=== PATIENT | female | born 1935 | race Caucasian/White ===

== ENCOUNTER → 2023-12-15 07:51 | Outpatient (REF) | payer MEDICARE, OTHER, SELFPAY | LOC: CLAB 07:51 | PROVIDERS: ATTENDING PHYSICIAN Specialist | DX: N39.0 Urinary tract infection, site not specified (principal) | CPT/HCPCS: 87077; 87086; 87186 ==

== ENCOUNTER → 2024-02-04 07:21 | Outpatient (REF) | payer MEDICARE, OTHER, SELFPAY ==
[2024-02-04 10:48] LABS: Blood Urea Nitrogen 18 mg/dl (7-17)
== END ==
LOC: PAVMRI 07:21
PROVIDERS: ATTENDING PHYSICIAN Otolaryngology; FAMILY PHYSICIAN Family Medicine
DX: R42 Dizziness and giddiness (principal)
CPT/HCPCS: 36415; 70553; 82565; 84520; A9575

== ENCOUNTER → 2024-03-29 06:39 | Outpatient (REF) | payer MEDICARE, OTHER, SELFPAY ==
[2024-03-29 07:22] LABS: % Basophils 0.5 % (0-2); % Eosinophils 2.5 % (0-6); % Immature Granulocytes 0.2 % (0-0.5); % Lymphocytes 26.7 % (20.5-51.1); % Neutrophils 59.1 % (42.2-75.2); Absolute Eosinophils 0.2 10^3/uL (0-0.7); Absolute Lymphocytes 2.4 10^3/uL (1.2-3.4); Absolute Neutrophils 5.2 10^3/uL (1.4-6.5); Hematocrit 38.2 % (37.0-47.0); Hemoglobin 12.4 g/dL (12.0-16.0); Mean Corp Hgb Conc. 32.5 g/dL (33.0-37.0); Mean Corpuscular Volume 89.5 fL (81.0-99.0); Mean Platelet Volume 11.7 fL (7.4-10.4); Nucleated Red Blood Cells % 0 %; Platelet Count 147 10^3/uL (130-400); Red Blood Cell Count 4.27 10^6/uL (4.20-5.40); Red Cell Dist. Width 13.5 % (11.5-14.5); White Blood Cell Count 8.8 10^3/uL (4.8-10.8)
[2024-03-29 07:57] LABS: ALT (SGPT) 19 U/L (0-35); AST (SGOT) 34 U/L (14-36); Albumin 4.1 g/dl (3.5-5.0); Alkaline Phosphatase 78 U/L (38-126); Blood Urea Nitrogen 21 mg/dl (7-17); Calcium 9.4 mg/dl (8.4-10.2); Carbon Dioxide 28 mmol/L (22-30); Chloride 106 mmol/L (98-107); Glucose 101 mg/dl (70-99); HDL Cholesterol 76 mg/dl; LDL Cholesterol, Calculated 57 mg/dl; Potassium 4.9 mmol/L (3.5-5.1); Sodium 141 mmol/L (135-145); Total Bilirubin 0.5 mg/dl (0.2-1.3); Total Cholesterol 142 mg/dl (50-199); Total Protein 6.8 g/dl (6.3-8.2); Triglyceride 46 mg/dl (10-149); Very Low Density Lipoprotein 9 mg/dl (0-30); eGFR > 60.00
[2024-03-29 09:20] LABS: Glycohemoglobin (HgbA1c) 6.1 % (4.0-5.6)
== END ==
LOC: REG 06:39
PROVIDERS: ATTENDING PHYSICIAN Family Medicine
DX: I25.10 Atherosclerotic heart disease of native coronary artery without angina pectoris (principal); I10 Essential (primary) hypertension; E78.00 Pure hypercholesterolemia, unspecified; R73.01 Impaired fasting glucose; R35.0 Frequency of micturition; D50.9 Iron deficiency anemia, unspecified; E66.9 Obesity, unspecified
CPT/HCPCS: 36415; 80053; 80061; 83036; 84443; 85025

== ENCOUNTER → 2024-04-29 17:31 | Outpatient (REF) | payer MEDICARE, OTHER, SELFPAY ==
[2024-04-29 18:42] LABS: Urine Albumin 1+ (Neg - Trace); Urine Bilirubin Negative (Negative); Urine Character Slightly Cloudy (Clear); Urine Color Yellow; Urine Glucose Negative (Negative); Urine Ketone Trace (Negative); Urine Leukocyte 2+ (Negative); Urine Nitrite Negative (Negative); Urine Occult Blood 4+ (Negative); Urine Urobilinogen Negative (Neg - 1+)
[2024-04-29 19:01] LABS: Urine Squamous Cell 0-2 /LPF (Few)
[2024-04-29 19:02] LABS: Urine Bacteria Few (Negative); Urine White Cell 50-60 /HPF (0-5)
== END ==
LOC: CLAB 17:31
PROVIDERS: ATTENDING PHYSICIAN Specialist
DX: N39.0 Urinary tract infection, site not specified (principal)
CPT/HCPCS: 36415; 81003; 81015; 87077; 87086; 87186

== ENCOUNTER → 2024-07-03 07:01 | Outpatient (REF) | payer MEDICARE, OTHER, SELFPAY | LOC: RCS 07:01 | PROVIDERS: ATTENDING PHYSICIAN Family Medicine | DX: I35.1 Nonrheumatic aortic (valve) insufficiency (principal); I34.0 Nonrheumatic mitral (valve) insufficiency | CPT/HCPCS: 93306 ==

== ENCOUNTER 2024-07-20 21:04 | Inpatient (IN) | payer MEDICARE, OTHER, SELFPAY ==
[2024-07-20] VITALS (15 sets, daily range): BP systolic 95–171; BP diastolic 44–95; PULSE 67–93; BMI 30.2; BMI 28.6
[2024-07-20 11:10] LABS: Glucose - Point of Care 182 mg/dl (70-99)
[2024-07-20 11:48] LABS: % Basophils 0.2 % (0-2); % Eosinophils 0.9 % (0-6); % Immature Granulocytes 0.4 % (0-0.5); % Lymphocytes 15.7 % (20.5-51.1); % Monocytes 4.8 % (1.7-9.3); Absolute Eosinophils 0.1 10^3/uL (0-0.7); Absolute Lymphocytes 1.6 10^3/uL (1.2-3.4); Absolute Monocytes 0.5 10^3/uL (0.1-0.6); Absolute Neutrophils 8.1 10^3/uL (1.4-6.5); Hematocrit 38.6 % (37.0-47.0); Hemoglobin 12.9 g/dL (12.0-16.0); Mean Corp Hgb Conc. 33.4 g/dL (33.0-37.0); Mean Corpuscular Volume 83.9 fL (81.0-99.0); Nucleated Red Blood Cells % 0 %; Platelet Count 154 10^3/uL (130-400); Red Cell Dist. Width 13.3 % (11.5-14.5); White Blood Cell Count 10.4 10^3/uL (4.8-10.8)
[2024-07-20 12:02] LABS: ALT (SGPT) 35 U/L (0-35); AST (SGOT) 45 U/L (14-36); Albumin 4.2 g/dl (3.5-5.0); Alkaline Phosphatase 68 U/L (38-126); Blood Urea Nitrogen 14 mg/dl (7-17); Calcium 9.4 mg/dl (8.4-10.2); Carbon Dioxide 22 mmol/L (22-30); Chloride 102 mmol/L (98-107); Estimated Creatinine Clearance 54 ml/min; Glucose 176 mg/dl (70-99); Sodium 138 mmol/L (135-145); Total Bilirubin 0.9 mg/dl (0.2-1.3); Total Protein 6.9 g/dl (6.3-8.2); eGFR > 60.00
[2024-07-20] MEDS: ANTIVERT 25 MG PO ×2 (12:45→23:05)
[2024-07-20] MEDS: ZOFRAN 4 MG IV (12:45)
[2024-07-20 13:24] LABS: COVID-19 Antigen Negative (Negative)
--- NOTE | 2024-07-20 13:53 | ED.GENMED ---
History of Present Illness
<Justa Do PA-C - Last Filed: 07/21/24 18:51>
General
Chief Complaint: Fall
Source: patient
Exam Limitations: none
Time Seen by Provider: 07/20/24 12:02
Nursing documentation reviewed up to this point in time: agreed with
History of Present Illness
History of Present Illness:
89 y/o F with h/o vertigo, htn, hld, [place], frequent UTIs
fell today due to dizziness that started while she was in line to vote.
pt says she suddenly felt the room spinning and lost her balance and went to fall backwards but was caught. she did bump the side of her head slightly but on LOC
she cb plavix not any AC
pt felt very nauseated and had vomiting while the room was spinning
she now feels much better
pt says she has had this many times, and more recnetly in the past few months has had it a much more frequently
she has previously been to vesitbular therapy and she has meclizine to take when she feels it
it started 2 days ago that she had some diziness, so she took 1 dose meclizine
normally when she has a flare up she starts taking it 3 times a day.
it is unclear why she didn't start tkaing it mor reguarly when it flared again
no headache, confusion, neck pain, blurry vision, ches tpain
she does tend to get up very slowly from sittin gposition
Past History
<Justa Do PA-C - Last Filed: 07/21/24 18:51>
Past History
ED Past Medical History: CAD, Psychiatric, Other (vitamin D deficiency, frequent UTIs, chronic sinusitis, osteoarthritis) and Other (Chronic sinus issues, hearing loss); Negative IDDM or NIDDM
ED Past Surgical History: Cardiac (mid LAD stenting) and Orthopedic (bilateral knee replacements)
Social History
Tobacco: Non-smoker
Alcohol: None
Drug: None
Personal:
Living: with family
Employment: Retired
Family History
Family History: Other (Noncontributory)
Review of Systems
<NEGRA Arellano Last Filed: 07/21/24 18:51>
Review of Systems
Allergies reviewed?: Yes
All Other Systems: Not applicable
Phy Exam
<NEGRA Arellano Last Filed: 07/21/24 18:51>
Physical Exam
Physical Exam:
GENERAL: Alert , in no apparent distress
EYE: pupils equal and reactive
NECK: Supple
ENT: o/p clr, mmm.
CARDIAC: irregular, no edema, no murmur
LUNGS: Clear breath sounds bilaterally, no acute respiratory distress, no wheezes/rales/rhonchi
ABDOMEN: Soft, without focal tenderness, no r/g, no cvat, normal bowel sounds
NEUROLOGICAL: Alert and oriented, no focal neuro deficits, CN intact
strength intact
SKIN: Warm and dry, skin intact.
MUSCULOSKELETAL: No edema, well perfused. neg wendy's sign
PSYCH: Normal and appropriate interaction.
Course
<NEGRA Arellano Last Filed: 07/21/24 18:51>
Orders/Labs/Results
Orders:
Orders
07/20/24 11:09
EKG [Electrocardiogram (*1)] Urgent
Reason for Study: Vertigo / Dizzy
EKG- Treatment ONCE
07/20/24 11:22
CMP [Comprehensive Metabolic Panel] Urgent
Complete Blood Count/With Diff Urgent
07/20/24 11:[address] [CT Head W/o Iv Contrast] Urgent
Comment:
Reason For Exam: fall
07/20/24 12:37
Orthostatic VS- Treatment ONCE
Meclizine [Antivert] 25 mg PO NOW STA
Ondansetron Injectable [Zofran] 4 mg IV NOW STA
07/20/24 12:44
COVID-19 Antigen Urgent
Source: Nasal Swab
07/20/24 13:55
0.9% Sodium Chloride 500 ml [Nss] 500 ml IV BOLUS
07/20/24 15:05
Troponin I Urgent
07/20/24 15:07
Electrocardiogram (*1) Urgent
Reason for Study: Chest Pain
EKG- Treatment ONCE
07/20/24 17:56
EKG [Electrocardiogram (*1)] Urgent
Reason for Study: Other
Other Reason for Exam: repeat trop
EKG- Treatment ONCE
07/20/24 17:58
Troponin I Urgent
07/20/24 18:40
Heparin 4,000 units IV NOW STA
Nursing to Place Non Medication Order As Directed
Physician Order: PTT 6 hours after initial start of Heparin infusion
Above order entered?: Yes
07/20/24 18:42
Aspirin Chewable [Low Strength Aspirin] 324 mg PO NOW STA
07/20/24 18:45
Heparin 28233 Units/250 ml 25,000 units in 250 ml IV PER PROTOCOL
Weight to be used for heparin protocol in kilograms (kg):: 74.9
Protocol:: Cardiac Tx/Acute Coronary
PTT Goal Range to be used:: PTT 73 to 111 seconds
Order type:: Initial
INITIAL Infusion Dose (UNITS/KG/hr) & then follow protocol:: 12 units/kg/hr
Infusion Dose in UNITS/hr & then follow protocol (UNITS/hr):: 900
INFUSION RATE in mL/hr & then follow protocol (mL/hr):: 9
PTT less than or equal to 64 seconds:: Increase rate by 200 units/hr (+ 2 mL/hr)
PTT 64.1 to 72.9 seconds:: Increase rate by 100 units/hr (+ 1 mL/hr)
PTT 73 to 111 seconds:: Target Range. No change in rate.
PTT 111.1 to 130.9 seconds:: Decrease rate by 100 units/hr (- 1 mL/hr)
PTT 131 to 199.9 seconds:: HOLD for 1 hr. Then decrease rate by 200 units/hr (- 2 mL/hr)
PTT greater than or equal to 200 seconds:: HOLD for 2 hrs & Notify Provider. Then decrease by 200 units/hr (-
2 mL/hr)
Lab follow-up:: Each change, PTT q6h until 2 consecutive are therapeutic. Then PTT
daily.
07/20/24 19:12
Aspirin Chewable [Low Strength Aspirin] 243 mg PO NOW STA
07/20/24 19:18
PTT Urgent
Comment: Obtain baseline before beginning heparin infusion if not already collected
07/20/24 20:47
Admit/Transfer Patient As Directed
Co-Sign Provider:
Level of Care: Inpatient admission
Assign to:: IVU
Physician / Group: alexis brian
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
Expected length of stay greater than two midnights?: Yes
ELOS- Estimated Length of Stay in days: 3
I certify the patient meets the requirements for IP care: Yes
Code Status As Directed
Resuscitation Status: Do not resuscitate
Reached after discussion with pt or family/Healthcare POA: Yes
Based on pt advanced directive or healthcare POA form: Yes
Decision communicated with: per pt
07/20/24 20:50
DNR Bracelet Application ONCE
07/20/24 20:55
PRN Pain Medication Management As Directed
May give lesser potent ordered pain med per pt: Yes
preference::
Protocol:: Medication orders for pain may be administered in a
manner that supports deferring to patient preference
when the pt is:
- Requesting an ordered lesser potent pain medication.
Least to most potent pain medications are defined
as: acetaminophen < NSAID < tramadol < opioids
(morphine, oxycodone, hydromorphone).
- Requesting a lesser dose of the same medication IF
ORDERED.
- Requesting a less intrusive route of administration
if both routes are prescribed by the provider (PO <
IV).
07/20/24 22:06
Meclizine [Antivert] 25 mg PO TIDPRN PRN
07/20/24 22:06
Heparin Protocol- PTT Orders As Directed
PTT per Heparin protocol: -Obtain CBC and baseline PTT - if not already collected.
-Obtain PTT 6 hours from start of infusion. Then, every 6 hours until 2 consecutive
PTT's are therapeutic. Then, PTT Daily.
-With each rate change, obtain PTT every 6 hours until 2 consecutive PTT's are
therapeutic. Then, PTT Daily.
Activity As Directed
Activity Level: As Tolerated
Intake/ Output As Directed
Frequency: Per unit guidelines
Notify MD As Directed
Notify physician if: PTT is greater than or equal to 200.
Vital Signs As Directed
Frequency: Per unit guidelines
Ot Eval And Treat Routine
Pt Eval And Treat Routine
Activity Level: As Tolerated
07/20/24 22:30
Troponin I Urgent
07/21/24 03:44
Cardiovascular Evaluation IN AM
Complete Blood Count/With Diff IN AM
Comprehensive Metabolic Panel IN AM
Hgba1c [Glycohemoglobin (HgbA1c)] IN AM
PTT Urgent
07/21/24 Breakfast
NPO
Allow oral meds: Yes
Allow clear liquids: No
NPO with Ice Chips: No
07/21/24 08:00
Aspirin Low Dose EC [Aspir Low (Enteric Coated)] 81 mg PO DAILY
Fluoxetine HCl [Prozac] 40 mg PO DAILY
ISOSORBIDE MONOnitrate ER [Imdur (Extended Release)] 30 mg PO DAILY
Lisinopril [Zestril] 10 mg PO BID
07/21/24 18:00
Atorvastatin [Lipitor] 40 mg PO QPM
07/22/24 06:00
Complete Blood Count/No Diff Q2D
Comment: notify provider: Platelet count < 130,000 or decrease by 50% from baseline
Complete Blood Count/With Diff IN AM
Comprehensive Metabolic Panel IN AM
07/23/24 06:00
Complete Blood Count/With Diff IN AM
Comprehensive Metabolic Panel IN AM
07/24/24 06:00
Complete Blood Count/No Diff Q2D
Comment: notify provider: Platelet count < 130,000 or decrease by 50% from baseline
Complete Blood Count/With Diff IN AM
Comprehensive Metabolic Panel IN AM
07/26/24 06:00
Complete Blood Count/No Diff Q2D
Comment: notify provider: Platelet count < 130,000 or decrease by 50% from baseline
07/28/24 06:00
Complete Blood Count/No Diff Q2D
Comment: notify provider: Platelet count < 130,000 or decrease by 50% from baseline
07/30/24 06:00
Complete Blood Count/No Diff Q2D
Comment: notify provider: Platelet count < 130,000 or decrease by 50% from baseline
08/01/24 06:00
Complete Blood Count/No Diff Q2D
Comment: notify provider: Platelet count < 130,000 or decrease by 50% from baseline
08/03/24 06:00
Complete Blood Count/No Diff Q2D
Comment: notify provider: Platelet count < 130,000 or decrease by 50% from baseline
08/05/24 06:00
Complete Blood Count/No Diff Q2D
Comment: notify provider: Platelet count < 130,000 or decrease by 50% from baseline
Abnormal Lab Results
07/20/24 07/20/24 07/20/24
11:05 11:22 17:58
MPV 11.0 H fL
(7.4-10.4)
Absolute Neuts (auto) 8.1 H 10^3/uL
(1.4-6.5)
Neutrophils % 78.0 H %
(42.2-75.2)
Lymphocytes % 15.7 L %
(20.5-51.1)
Glucose 176 H mg/dl
(70-99)
AST 45 H U/L
(14-36)
Troponin I 0.172 H* D ng/ml
POC Glucose 182 H mg/dl
(70-99)
07/20/24 11:22
07/20/24 11:22
Vital Signs
Initial and Last Documented VS:
Initial Vital Signs
Temp Pulse Resp BP Pulse Ox
97.8 F 72 18 152/95 97
07/20/24 10:59 07/20/24 10:59 07/20/24 10:59 07/20/24 10:59 07/20/24 10:59
Last Documented Vital Signs
Temp Pulse Resp BP Pulse Ox
98.4 F 71 16 124/62 98
07/21/24 16:02 07/21/24 15:45 07/21/24 16:02 07/21/24 12:07 07/21/24 16:02
[place];Geena Sheldon PA-C - Last Filed: 07/20/24 20:28>
Orders/Labs/Results
Orders:
Orders
07/20/24 11:09
EKG [Electrocardiogram (*1)] Urgent
Reason for Study: Vertigo / Dizzy
EKG- Treatment ONCE
07/20/24 11:22
CMP [Comprehensive Metabolic Panel] Urgent
Complete Blood Count/With Diff Urgent
07/20/24 11:[address] [CT Head W/o Iv Contrast] Urgent
Comment:
Reason For Exam: fall
07/20/24 12:37
Orthostatic VS- Treatment ONCE
Meclizine [Antivert] 25 mg PO NOW STA
Ondansetron Injectable [Zofran] 4 mg IV NOW STA
07/20/24 12:44
COVID-19 Antigen Urgent
Source: Nasal Swab
07/20/24 13:55
0.9% Sodium Chloride 500 ml [Nss] 500 ml IV BOLUS
07/20/24 15:05
Troponin I Urgent
07/20/24 15:07
Electrocardiogram (*1) Urgent
Reason for Study: Chest Pain
EKG- Treatment ONCE
07/20/24 17:56
EKG [Electrocardiogram (*1)] Urgent
Reason for Study: Other
Other Reason for Exam: repeat trop
EKG- Treatment ONCE
07/20/24 17:58
Troponin I Urgent
07/20/24 18:40
Heparin 4,000 units IV NOW STA
Nursing to Place Non Medication Order As Directed
Physician Order: PTT 6 hours after initial start of Heparin infusion
Above order entered?: Yes
07/20/24 18:42
Aspirin Chewable [Low Strength Aspirin] 324 mg PO NOW STA
07/20/24 18:45
Heparin 23193 Units/250 ml 25,000 units in 250 ml IV PER PROTOCOL
Weight to be used for heparin protocol in kilograms (kg):: 74.9
Protocol:: Cardiac Tx/Acute Coronary
PTT Goal Range to be used:: PTT 73 to 111 seconds
Order type:: Initial
INITIAL Infusion Dose (UNITS/KG/hr) & then follow protocol:: 12 units/kg/hr
Infusion Dose in UNITS/hr & then follow protocol (UNITS/hr):: 900
INFUSION RATE in mL/hr & then follow protocol (mL/hr):: 9
PTT less than or equal to 64 seconds:: Increase rate by 200 units/hr (+ 2 mL/hr)
PTT 64.1 to 72.9 seconds:: Increase rate by 100 units/hr (+ 1 mL/hr)
PTT 73 to 111 seconds:: Target Range. No change in rate.
PTT 111.1 to 130.9 seconds:: Decrease rate by 100 units/hr (- 1 mL/hr)
PTT 131 to 199.9 seconds:: HOLD for 1 hr. Then decrease rate by 200 units/hr (- 2 mL/hr)
PTT greater than or equal to 200 seconds:: HOLD for 2 hrs & Notify Provider. Then decrease by 200 units/hr (-
2 mL/hr)
Lab follow-up:: Each change, PTT q6h until 2 consecutive are therapeutic. Then PTT
daily.
07/20/24 19:12
Aspirin Chewable [Low Strength Aspirin] 243 mg PO NOW STA
07/20/24 19:18
PTT Urgent
Comment: Obtain baseline before beginning heparin infusion if not already collected
07/20/24 20:47
Admit/Transfer Patient As Directed
Co-Sign Provider:
Level of Care: Inpatient admission
Assign to:: IVU
Physician / Group: alexis brian
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
Expected length of stay greater than two midnights?: Yes
ELOS- Estimated Length of Stay in days: 3
I certify the patient meets the requirements for IP care: Yes
Code Status As Directed
Resuscitation Status: Do not resuscitate
Reached after discussion with pt or family/Healthcare POA: Yes
Based on pt advanced directive or healthcare POA form: Yes
Decision communicated with: per pt
07/20/24 20:50
DNR Bracelet Application ONCE
07/20/24 20:55
PRN Pain Medication Management As Directed
May give lesser potent ordered pain med per pt: Yes
preference::
Protocol:: Medication orders for pain may be administered in a
manner that supports deferring to patient preference
when the pt is:
- Requesting an ordered lesser potent pain medication.
Least to most potent pain medications are defined
as: acetaminophen < NSAID < tramadol < opioids
(morphine, oxycodone, hydromorphone).
- Requesting a lesser dose of the same medication IF
ORDERED.
- Requesting a less intrusive route of administration
if both routes are prescribed by the provider (PO <
IV).
07/20/24 22:06
Meclizine [Antivert] 25 mg PO TIDPRN PRN
07/20/24 22:06
Heparin Protocol- PTT Orders As Directed
PTT per Heparin protocol: -Obtain CBC and baseline PTT - if not already collected.
-Obtain PTT 6 hours from start of infusion. Then, every 6 hours until 2 consecutive
PTT's are therapeutic. Then, PTT Daily.
-With each rate change, obtain PTT every 6 hours until 2 consecutive PTT's are
therapeutic. Then, PTT Daily.
Activity As Directed
Activity Level: As Tolerated
Intake/ Output As Directed
Frequency: Per unit guidelines
Notify MD As Directed
Notify physician if: PTT is greater than or equal to 200.
Vital Signs As Directed
Frequency: Per unit guidelines
Ot Eval And Treat Routine
Pt Eval And Treat Routine
Activity Level: As Tolerated
07/20/24 22:30
Troponin I Urgent
07/21/24 03:44
Cardiovascular Evaluation IN AM
Complete Blood Count/With Diff IN AM
Comprehensive Metabolic Panel IN AM
Hgba1c [Glycohemoglobin (HgbA1c)] IN AM
PTT Urgent
07/21/24 Breakfast
NPO
Allow oral meds: Yes
Allow clear liquids: No
NPO with Ice Chips: No
07/21/24 08:00
Aspirin Low Dose EC [Aspir Low (Enteric Coated)] 81 mg PO DAILY
Fluoxetine HCl [Prozac] 40 mg PO DAILY
ISOSORBIDE MONOnitrate ER [Imdur (Extended Release)] 30 mg PO DAILY
Lisinopril [Zestril] 10 mg PO BID
07/21/24 18:00
Atorvastatin [Lipitor] 40 mg PO QPM
07/22/24 06:00
Complete Blood Count/No Diff Q2D
Comment: notify provider: Platelet count < 130,000 or decrease by 50% from baseline
Complete Blood Count/With Diff IN AM
Comprehensive Metabolic Panel IN AM
07/23/24 06:00
Complete Blood Count/With Diff IN AM
Comprehensive Metabolic Panel IN AM
07/24/24 06:00
Complete Blood Count/No Diff Q2D
Comment: notify provider: Platelet count < 130,000 or decrease by 50% from baseline
Complete Blood Count/With Diff IN AM
Comprehensive Metabolic Panel IN AM
07/26/24 06:00
Complete Blood Count/No Diff Q2D
Comment: notify provider: Platelet count < 130,000 or decrease by 50% from baseline
07/28/24 06:00
Complete Blood Count/No Diff Q2D
Comment: notify provider: Platelet count < 130,000 or decrease by 50% from baseline
07/30/24 06:00
Complete Blood Count/No Diff Q2D
Comment: notify provider: Platelet count < 130,000 or decrease by 50% from baseline
08/01/24 06:00
Complete Blood Count/No Diff Q2D
Comment: notify provider: Platelet count < 130,000 or decrease by 50% from baseline
08/03/24 06:00
Complete Blood Count/No Diff Q2D
Comment: notify provider: Platelet count < 130,000 or decrease by 50% from baseline
08/05/24 06:00
Complete Blood Count/No Diff Q2D
Comment: notify provider: Platelet count < 130,000 or decrease by 50% from baseline
Abnormal Lab Results
07/20/24 07/20/24 07/20/24
11: 17:58
MPV 11.0 H fL
(7.4-10.4)
Absolute Neuts (auto) 8.1 H 10^3/uL
(1.4-6.5)
Neutrophils % 78.0 H %
(42.2-75.2)
Lymphocytes % 15.7 L %
(20.5-51.1)
Glucose 176 H mg/dl
(70-99)
AST 45 H U/L
(14-36)
Troponin I 0.172 H* D ng/ml
POC Glucose 182 H mg/dl
(70-99)
07/20/24 11:22
07/20/24 11:22
Vital Signs
Initial and Last Documented VS:
Initial Vital Signs
Temp Pulse Resp BP Pulse Ox
97.8 F 72 18 152/95 97
07/20/24 10:59 07/20/24 10:59 07/20/24 10:59 07/20/24 10:59 07/20/24 10:59
Last Documented Vital Signs
Temp Pulse Resp BP Pulse Ox
98.4 F 71 16 124/62 98
07/21/24 16:02 07/21/24 15:45 07/21/24 16:02 07/21/24 12:07 07/21/24 16:02
<Geena Sheldon PA-C - Last Filed: 07/20/24 20:28>
*Critical Care Note
Total Time (30-74mins, 75-104mins- exclusive of procedures): Not Applicable
<Geena Sheldon PA-C - Last Filed: 07/20/24 20:28>
Update Note
Update Note:
I assumed care of patient awaiting delta troponin and EKG results. Repeat troponin elevated at 0.172. EKG appears unchanged with a known LBBB. Patient reports 'slight' chest discomfort currently which has been ongoing for 'a while.' Heparin gtt
ordered and patient admitted for further management.
ED Attending Note
<Justa Do PA-C - Last Filed: 07/21/24 18:51>
-
Portions of this chart may have been created with voice recognition software.� Occasional wrong word or��sound alike� substitutions may have occurred due to the inherent limitations of voice recognition software.
Discharge Plan
Departure
Patient Disposition: Admit
Date of Disposition: 07/20/24
Time of Disposition: 19:08
Presentation/result/management discussed w/ accepting MD/DO: Hospitalist
Condition: Fair
Discharge Problem:
Vertigo, Fall, NSTEMI (non-ST elevated myocardial infarction)
Interventions
Interventions:
*Risk Screen - Suicide Last Done: 07/20/24 11:14
*General Assessment Last Done: 07/20/24 11:13
*Neglect/Abuse Screening Last Done: 07/20/24 11:14
ED- Fall Risk Assessment Last Done: 07/20/24 11:14
*ED COVID-19 Vaccine History Last Done: 07/20/24 22:14
*Nursing Disposition Last Done: 07/20/24 22:16
ED-Musculoskeletal Assessment Last Done: 07/20/24 11:16
ED- Neurological Assessment Last Done: 07/20/24 11:14
ED-Skin Assessment Last Done: 07/20/24 11:16
Discharge Date and Time
Discharge Date/Time: 07/20/24 22:17
[2024-07-20] MEDS: NSS 500 IV (13:57)
[2024-07-20 15:44] LABS: Troponin I 0.024 ng/ml
[2024-07-20 18:38] LABS: Troponin I 0.172 ng/ml
[2024-07-20] MEDS: LOW STRENGTH ASPIRIN 243 MG PO (19:19)
[2024-07-20 19:42] LABS: APTT 25.2 Sec (23.4-35.0)
[2024-07-20] MEDS: HEPARIN 25000 UNITS/250 ML IV (19:44)
[2024-07-20] MEDS: HEPARIN 4000 UNITS IV (19:44)
--- NOTE | 2024-07-20 19:54 | HPS.HSE ---
Family Physician
-
Family Physician: Domenica Carrizales
Chief Complaint
-
dizzness, chest pain
History of Present Illness
89-year-old female who was in line to the today for the election when she suddenly felt the room spinning lost her balance and fell backwards but was caught by her . She however did bump the side of her head slightly but had no LOC. She
felt very nauseated and vomited due to complaining the room was spinning. She reports this is happening more frequently. She typically has vertigo symptoms 1-2 times per month for which she takes meclizine 3 times a day for the first day then 2
times for the second day and it dissipates. While here in the ER she started complaining of chest pressure left side of her chest and under her breasts lasting a few minutes then it resolved on its own. She denies any radiation or diaphoresis with
this chest pain. Her EKG showed LBBB which is baseline for her, along with PACs and T wave versions in anterior and inferior leads. Her troponin elevated on the second blood draw. She did take her a.m. medications aspirin and her Imdur along with
lisinopril.
sHe denies headache, confusion, fever, sore throat, chest pain, palpitations, abdominal pain, nausea, vomiting, diarrhea, urinary symptoms.
SHe has past medical history of vertigo for the past 5 years, HTN, depression/anxiety CAD with mid LAD stenting greater than 5 years ago, vitamin D deficiency, frequent UTIs, chronic sinusitis, OA, hearing loss
Medical History
Past Medical History
Past Medical History: Reports Other
Additional Past Medical History:
Vertigo
HTN
Depression/Anxiety
CAD with mid LAD stenting
vitamin D deficiency
frequent UTIs
Chronic sinusitis
OA
Hearing loss
Past Surgical History: Reports Other (Bilateral knee replacements)
Social History
Tobacco: Non-smoker
Alcohol: None
Personal:
Living: With Family ()
Employment: Retired
Family History
Family History: Other (Father history of 3 MIs age 63 mother IN age 70-80 unsure 1 brother of pancreatic cancer in his 60s)
Allergies / Home Medications
Allergies reflects when Allergies were last updated in [facility].
Home Medications with original date entered in [facility]
Allergy/Medication List:
Allergies
Allergy/AdvReac Type Severity Reaction Status Date / Time
prednisone Allergy Mild Rash Verified 10/10/22 13:32
metaxalone [From Skelaxin] Allergy Rash Verified 10/10/22 13:32
Home Medications
aspirin 81 mg tablet,delayed release 81 mg PO DAILY Blood Clot Prevention/Tx 07/20/24
atorvastatin 40 mg tablet 40 mg PO QPM High Cholesterol 07/20/24
fluoxetine 40 mg capsule 40 mg PO DAILY depression/anxiety 07/20/24
isosorbide mononitrate 30 mg tablet,extended release 24 hr 30 mg PO DAILY Heart Disease/Condition 07/20/24
lisinopril 10 mg tablet 10 mg PO BID Blood Pressure 07/20/24
meclizine 25 mg tablet 25 mg PO TID PRN dizziness #30 tabs 07/20/24
meclizine 25 mg tablet 25 mg PO TIDPRN PRN vertigo 07/20/24
methenamine hippurate 1 gram tablet 1 g PO BIDPRN PRN urinary symptoms 07/20/24
Review of Systems
-
History Source: Patient
A 12 point ROS was completed and negative except as noted: Yes
Constitutional: Denies Fever or Fatigue
EENT: Reports Other (Vertigo with spinning sensation); Denies Sore Throat or Runny Nose
Respiratory: Denies Cough or Trouble Breathing
Cardiac: Reports Chest Pain (Left-sided chest under breast); Denies Diaphoresis or Palpitations
Abdomen/GI: Denies Abdominal Pain, Nausea, Vomiting, Diarrhea or Constipated
: Denies Dysuria, Frequency, Flank Pain, Incontinence, Difficulty Voiding, Urgency or Bleeding
Musculoskeletal: Denies Joint Pain, Joint Swelling or Edema
Skin: Denies Itching or Rash
Neurological: Reports Dizzy; Denies Headache or Weakness
Endocrine: Reports No Symptoms
Hematologic/Lymphatic: Reports No Symptoms
Psych: Reports Calm
Physical Exam
Vital Signs
Vital Signs
Temp Pulse Resp BP Pulse Ox
98.1 F 86 20 150/60 94
07/20/24 19:51 07/20/24 18:45 07/20/24 18:45 07/20/24 17:00 07/20/24 18:45
Physical Exam
General: Comfortable and Conversant; No Pain, Fever or Chills
HEENT: NormoCephalic, Anicteric, Moist mucous membranes, PERRLA, [place] Conjunctivae and Neck Nontender
Respiratory: Clear; No Wheezes, Rales or Rhonchi
Cardiac: S1/S2 and Regular Rhythm (Sinus with PACs); No Murmur, Rub, Gallop, Peripheral Edema or JVD
Breast: Deferred by me
GI: Soft, Non Tender, Non Distended, Normal Bowel Sounds and No Hepatosplenomegaly
Rectal: Deferred by Provider
Genito-urinary: Deferred by me
Musculoskeletal: No Clubbing, No Cyanosis and No Edema
Skin: Warm and Dry; No Rash
Neuro: AO x 3, No Motor Deficits, Nonfocal/grossly intact and Cranial Nerves Intact; No Slurred Speech, Facial Droop, Tremors or Sedated
Psych: Calm
Laboratory Results
-
07/20/24 11:22
07/20/24 11:22
Laboratory Results
APTT 25.2 Sec (23.4-35.0) 07/20/24 19:18
Total Bilirubin 0.9 mg/dl (0.2-1.3) 07/20/24 11:22
AST 45 U/L (14-36) H 07/20/24 11:22
ALT 35 U/L (0-35) 07/20/24 11:22
Alkaline Phosphatase 68 U/L (38-126) 07/20/24 11:22
Troponin I 0.172 ng/ml H* D 07/20/24 17:58
Data Reviewed
-
Diagnostic Radiology: Report Reviewed by me
Lab Data: Labs Reviewed by me
Impression/Plan
-
Impression/plan:
Admit to IMU
#Acute coronary syndrome with abnormal EKG
#NSTEMI
Troponin 0.024 > 0.172
-Consult CBC cardiology- discussed with dr Delgado
-Aspirin 324 mg given now
-IV heparin drip
-Continue Imdur 30 mg daily, aspirin 81 mg daily, atorvastatin 40 mg every afternoon
2D echo 07/03/2024: EF 50%, global hypokinesis. Abnormal septal motion. Mildly reduced LVSF. Moderately dilated left atrium.
Moderate MR.
Mild to moderate aortic regurg
Lexiscan stress test 02/01/2023: Inconclusive for ischemia due to LBBB, systolic function normal,
EF 58%, low risk but may be moderate risk due to inability to exercise
#Hx CAD with LAD stent
-Continue Imdur 30 mg daily, aspirin 81 mg daily, atorvastatin 40 mg every afternoon
#Chronic LBBB
#Acute on chronic vertigo�resolved
Has had 1-2 times a month for the last 5 years, was treated with vestibular therapy approximately 2 years ago
-Given meclizine 25 mg in ER with vertigo resolving
-Continue meclizine 3 times daily as needed vertigo
#HTN�benign
BP 150/60
-Continue lisinopril 10 mg p.o. twice daily
#Depression/anxiety
-Continue fluoxetine 40 mg daily
DVT prophylaxis
Patient on IV heparin
DNR per patient no CPR no intubation but does want IV antibiotics IV fluids
--- NOTE | 2024-07-20 21:52 | W.PN.UPDATE ---
Update Note
Progress Note Update
This is an addendum to the H&P written by Shannan Szymanski on 07/20/2024. Patient seen and examined independently with [employer].
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
presenting for vertigo.
After she came to the ER she developed chest pain. Initial troponin was 0.024 increased to 0.172. EKG shows sinus rhythm with premature atrial complexes with nonspecific ST-T wave changes.. Presentation consistent with NSTEMI. Trend troponins.
Aspirin given, heparin drip. Minimal chest pain at the current time. Cardiology consulted.
[2024-07-21] VITALS (9 sets, daily range): BP systolic 117–170; BP diastolic 55–89; PULSE 82–85; O2SAT 100; BMI 28.3
--- NOTE | 2024-07-21 00:11 | PTCARENOTE ---
Pt rec'd as new adm from ED on stretcher. Pt placed on telemetry; Sinus with BBB noted. Iv Heparin at 900 units/hr. no c/o cp or vertigo but pt did ask to take another dose of Meclizine at HS. Adm hx taken and recorded. call soria placed at bedside.
Pt aware to call nursing with ambulation secondary to fall risk.
--- NOTE | 2024-07-21 01:27 | W.PN.UPDATE ---
Update Note
Progress Note Update
Patient reports to RN, donna of UTI, having frequent small amounts of urine, cloudy urine, requesting Urine to be tested. No other complaints, will do BladderScan and UA
[2024-07-21 03:59] LABS: % Basophils 0.3 % (0-2); % Eosinophils 1.4 % (0-6); % Immature Granulocytes 0.5 % (0-0.5); % Lymphocytes 30.8 % (20.5-51.1); % Monocytes 9.9 % (1.7-9.3); % Neutrophils 57.1 % (42.2-75.2); Absolute Eosinophils 0.1 10^3/uL (0-0.7); Absolute Lymphocytes 2.1 10^3/uL (1.2-3.4); Absolute Monocytes 0.7 10^3/uL (0.1-0.6); Absolute Neutrophils 3.8 10^3/uL (1.4-6.5); Hematocrit 34.9 % (37.0-47.0); Hemoglobin 11.8 g/dL (12.0-16.0); Mean Corp Hgb Conc. 33.8 g/dL (33.0-37.0); Mean Corpuscular Hgb 28.1 pg (27.0-31.0); Mean Corpuscular Volume 83.1 fL (81.0-99.0); Mean Platelet Volume 10.4 fL (7.4-10.4); Nucleated Red Blood Cells % 0.3 %; Platelet Count 158 10^3/uL (130-400); Red Cell Dist. Width 13.3 % (11.5-14.5); White Blood Cell Count 6.7 10^3/uL (4.8-10.8)
--- NOTE | 2024-07-21 04:05 | PTCARENOTE ---
Pt remains cp free this am. call soria within reach. Pt aware to remain npo and call if cp should return. OOB to bsc without c/o feeling dizzy.
[2024-07-21 04:10] LABS: APTT 140.4 Sec (23.4-35.0)
[2024-07-21 04:41] LABS: Troponin I 0.099 ng/ml
[2024-07-21 05:20] LABS: ALT (SGPT) 30 U/L (0-35); AST (SGOT) 41 U/L (14-36); Albumin 3.7 g/dl (3.5-5.0); Alkaline Phosphatase 47 U/L (38-126); Blood Urea Nitrogen 12 mg/dl (7-17); Carbon Dioxide 25 mmol/L (22-30); Chloride 105 mmol/L (98-107); Estimated Creatinine Clearance 56 ml/min; Glucose 102 mg/dl (70-99); HDL Cholesterol 75 mg/dl; LDL Cholesterol, Calculated 61 mg/dl; Potassium 4.5 mmol/L (3.5-5.1); Sodium 141 mmol/L (135-145); Total Bilirubin 0.7 mg/dl (0.2-1.3); Total Cholesterol 148 mg/dl (50-199); Total Protein 6.2 g/dl (6.3-8.2); Triglyceride 60 mg/dl (10-149); Very Low Density Lipoprotein 12 mg/dl (0-30); eGFR > 60.00
[2024-07-21 05:52] LABS: Urine Albumin Trace (Neg - Trace); Urine Bilirubin Negative (Negative); Urine Character Slightly Cloudy (Clear); Urine Color Yellow; Urine Glucose Negative (Negative); Urine Ketone Negative (Negative); Urine Leukocyte 2+ (Negative); Urine Nitrite Positive (Negative); Urine Occult Blood 1+ (Negative); Urine Urobilinogen Negative (Neg - 1+)
[2024-07-21 06:07] LABS: Urine Bacteria Moderate (Negative); Urine White Cell >100 /HPF (0-5)
--- NOTE | 2024-07-21 08:10 | PTCARENOTE ---
Assumed care of pt from prev nsg shift; Pt AAOx3 w/no c/o SOB. Pt does c/o of 'intermittent chest discomfort w/some dizziness'. Pt rates as a 2-3/10 but reports it 'comes & goes quickly'. Pt does report feeling mild nausea this AM. [place] provided.
VS stable w/ HR 70's & BP 160/70. Cardiology in to see pt. Plan of care ongoing.
--- NOTE | 2024-07-21 08:21 | CON.CAR ---
Addendum entered and electronically signed by Yonny Chance MD 07/21/24 10:12:
I saw and examined the patient.
The ROPE CLEANER's note was reviewed and I agree with the note.
Comment: I have known Mrs Garcia since at least 2018. She has developed a stable atypical CP syndrome but she had no CP with the symptoms that prompted admit. I feel that troponin elevation is a non-ischemic myocardial injury event related to her
presenting illness. I don't view this as ACS. In case her atypical CP (<1min well localized left sided CP) is from CAD we will add PRN NTG SL and increase isosorbide mononitrate. I reviewed signs/symptoms of ACS/KS that would prompt ER/911. OK if
does well off heparin in several hours from the cardiac standpoint. We will arrange followup in our office.
Original Note:
Consultation
Consultation Request
Date/Time Consultation Requested: 07/20/241953
Date/Time Consultation Performed: 07/21/24804
Requesting Provider: Shannan Szymanski
Performing Provider: Melanie CARTER for Dr. Chance
Reason for Consultation: abnormal troponin and chest discomfort
Medical History
-
Chief Complaint: vertigo
History of Present Illness:
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
more severe than usual. She fell, but was caught by her so did not hit her head. Denies LOC. We are due to abnormal troponin. Troponin peaked at 0.172. EKG with chronic LBBB. She is CP free at the time of my assessment, but has had some
intermittent discomfort overnight- it lasts about 1 minute and is a pressure at the left side of her chest radiating to epigastric region. She is in no distress at the time of my assessment. She is on a heparin drip and received full dose aspirin
yesterday. She admits to intermittent chest discomfort as described over the past few weeks. It is mild so she is not sure how often it happens and does not think it is exertional. She walks the grocery store without the pain.
Past Medical History
Past Medical History: CAD, Hypercholesterolemia, Valvular Disease, Psychiatric (depression/anxiety) and Other (vertigo, UTIs, LBBB)
Social History
Tobacco: Non-Smoker
Personal:
Living: With Family
Family History
Family History: CAD (mom and dad)
Allergies / Home Medications
Allergy/AdvReac Type Severity Reaction Status Date / Time
metaxalone [From Skelaxin] Allergy Rash Verified 10/10/22 13:32
prednisone Allergy Rash Verified 07/20/24 22:10
�Medication �Instructions �Recorded �Confirmed �Type
aspirin 81 mg tablet,delayed 81 mg PO DAILY Blood Clot 07/20/24 07/20/24 History
release Prevention/Tx
atorvastatin 40 mg tablet 40 mg PO QPM High Cholesterol 07/20/24 07/20/24 History
fluoxetine 40 mg capsule 40 mg PO DAILY depression/anxiety 07/20/24 07/20/24 History
isosorbide mononitrate 30 mg 30 mg PO DAILY Heart 07/20/24 07/20/24 History
tablet,extended release 24 hr Disease/Condition
lisinopril 10 mg tablet 10 mg PO BID Blood Pressure 07/20/24 07/20/24 History
meclizine 25 mg tablet 25 mg PO TID PRN dizziness #30 tabs 07/20/24 Rx
meclizine 25 mg tablet 25 mg PO TIDPRN PRN vertigo 07/20/24 07/20/24 History
methenamine hippurate 1 gram tablet 1 g PO BIDPRN PRN urinary symptoms 07/20/24 07/20/24 History
Review of Systems
-
History Source: Patient
All other systems: Negative unless noted
Cardiac: Chest Pain
Neurological: Other (vertigo)
Physical Exam
Vital Signs
Temp Pulse Resp BP Pulse Ox
97.9 F 71 16 160/70 98
07/21/24 08:03 07/21/24 08:02 07/21/24 08:03 07/21/24 08:02 07/21/24 08:03
Lab Results
07/21/24 03:44
07/21/24 03:44
Troponin I 0.099 ng/ml H* 07/21/24 03:44
Physical Exam
General: Well Developed, Well Nourished and No Apparent Distress
HEENT: Normocephalic and Anicteric
Respiratory: Clear and Non Labored Respirations
Cardiac: Regular Rhythm
Skin: Warm and Dry
Neuro: AO x 3
Psych: Calm
Impression / Plan
-
Abnormal troponin:
-likely acute non-ischemic myocardial injury in setting of vertigo/fall
-peak troponin is 0.172
-CP free at present, but has had some intermittently- atypical in that it is non-exertional
-chronic LBBB on EKG, which is unchanged. Recent echo as noted.
-continue ASA. Stop heparin drip. We will increase Imdur. Walk around today and if feels well without CP, okay for d/c from our perspective with follow-up in office 1-2 months.
CAD with history of LAD stenting:
-continue ASA, statin, increase imdur- also needs PRN nitro at d/c
HTN:
-moderately elevated at times
-continue ACEI
-monitor with increased isosorbide
Vertigo:
-on meclizine
-management per primary
LBBB:
-chronic unchanged
Data Reviewed
-
EKG: Tracing Personally Visualized and interpreted (SR with PAC's, LAD, LBBB)
Medical Tests (Nuc Med, Echo etc): Report Reviewed by me (Echo 06/2024: Mildly reduced left ventricular systolic function. Global hypokinesis. Abnormal paradoxical septal motion. EF is 50%. Moderately dilated left atrium. Moderate mitral
regurgitation. Mild to moderate aortic regurgitation.) and Other (cath 2017: Nonobstructive focal stenosis just prior to the previously placed stent with negative IFR indicating a nonobstructive lesion. 2: CAD of the superior branch of the
bifurcating diagonal. nuclear stress test 2022: normal imaging )
Labs: Labs Reviewed by me
Old Records: Reviewed
[2024-07-21] MEDS: PROZAC 40 MG PO (10:15)
[2024-07-21] MEDS: ASPIR LOW (ENTERIC COATED) 81 MG PO (10:15)
[2024-07-21] MEDS: IMDUR (EXTENDED RELEASE) 60 MG PO (10:15)
[2024-07-21] MEDS: ZESTRIL 10 MG PO ×2 (10:15→20:09)
[2024-07-21] MEDS: ANTIVERT 25 MG PO (10:18)
--- NOTE | 2024-07-21 10:55 | PTOTSP ---
pt currently demonstrates ability to complete simple ADLs, functional transfers, ambulation with supervision to no assistance. pt reports chest pressure, no pain with activity. RN updated. no acute OT needs identified at this time, will sign off.
--- NOTE | 2024-07-21 11:03 | PTOTSP ---
Pt not having dizziness or chest pain today and was able to get OOB and ambulate in hallway without an assistive device. No acute PT needs were identified at this time. Will sign off.
[2024-07-21 11:17] LABS: Urine Albumin Trace (Neg - Trace); Urine Bilirubin Negative (Negative); Urine Character Very Cloudy (Clear); Urine Color Yellow; Urine Glucose Negative (Negative); Urine Ketone Trace (Negative); Urine Leukocyte 2+ (Negative); Urine Nitrite Negative (Negative); Urine Occult Blood 2+ (Negative); Urine Urobilinogen Negative (Neg - 1+)
[2024-07-21 11:25] LABS: Urine Bacteria Moderate (Negative); Urine White Cell 50-60 /HPF (0-5)
[2024-07-21 11:26] LABS: Urine Red Blood Cell 26-30 /HPF (0-2)
--- NOTE | 2024-07-21 11:56 | CM ---
CM following for DC planning needs.
Met w/ patient at bedside to complete initial assessment. Pt. resides w/ spouse in a private 1 story home in a [place] community. She is functionally indep. at baseline w/ ADLs, mobilities without the use of any assisted device.
Pt. has RX plan and uses [facility] for Rx needs.
Anticipated DC plan is for home without needs.
Will remain available.
[2024-07-21] MEDS: ZOSYN 100 IV ×3 (12:11→22:22)
[2024-07-21] MEDS: FLUSH (NSS) 2 FLUSH IV (12:12)
--- NOTE | 2024-07-21 14:45 | W.PN.HOSP.TC ---
Today's Communication/Plan
-
increase isosorbide
nitro sl
await urine cultures, start zosyn
Assessment / Plan
Assessment / Plan
Physical Exam
General: Comfortable and Conversant; No Pain, Fever or Chills
HEENT: NormoCephalic, Anicteric, Moist mucous membranes, PERRLA, [place] Conjunctivae and Neck Nontender
Respiratory: Clear; No Wheezes, Rales or Rhonchi
Cardiac: S1/S2 and Regular Rhythm (Sinus with PACs); No Murmur, Rub, Gallop, Peripheral Edema or JVD
Breast: Deferred by me
GI: Soft, Non Tender, Non Distended, Normal Bowel Sounds and No Hepatosplenomegaly
Rectal: Deferred by Provider
Genito-urinary: Deferred by me
Musculoskeletal: No Clubbing, No Cyanosis and No Edema
Skin: Warm and Dry; No Rash
Neuro: AO x 3, No Motor Deficits, Nonfocal/grossly intact and Cranial Nerves Intact; No Slurred Speech, Facial Droop, Tremors or Sedated
Psych: Calm
#Atypical Chest Pain
#Elevated Troponin Elevation - most likely non ischemic myocardial injury
-Cards consulted
� Cardiology feels troponin elevation is nonischemic myocardial injury, related to presenting illness, ? UTI
� Add as needed nitroglycerin sublingual
� Increase isosorbide mononitrate
� Cardiology reviewed signs symptoms of ACS/AL, prompting ER visit/911
�if okay off heparin drip, cardiology has cleared patient
- Cont ASA
-F/u Cards outpatient
#CAD with history of LAD stenting:
-continue ASA, statin, increase imdur- also needs PRN nitro at d/c
#UTI
-has psuedomonas A in the past
-f/u cultures
-start zosyn
#Chronic LBBB
#Acute on chronic vertigo�resolved
Has had 1-2 times a month for the last 5 years, was treated with vestibular therapy approximately 2 years ago
-Given meclizine 25 mg in ER with vertigo resolving
-Continue meclizine 3 times daily as needed vertigo
#HTN�benign
ACEI
Increase isosorbide
#Depression/anxiety
-Continue fluoxetine 40 mg daily
#Vertigo
- meclizine
DVT prophylaxis
Patient on IV heparin
DNR per patient no CPR no intubation but does want IV antibiotics IV fluids
Anticipated Discharge: 24 - 48 hours
Subjective/Interval History
-
Date of Service: July 21, 2024
No acute events overnight
Objective Data
-
Labs:
Laboratory Results
07/21/24
03:44
WBC 6.7
Hgb 11.8 L
Hct 34.9 L
Plt Count 158
APTT 140.4 H
Sodium 141
Potassium 4.5
Chloride 105
Carbon Dioxide 25
BUN 12
Creatinine 0.7
Glucose 102 H
Calcium 9.0
Total Bilirubin 0.7
AST 41 H
ALT 30
Alkaline Phosphatase 47
Vital Signs:
Vital Signs
Temp Pulse Resp BP Pulse Ox
98.9 F 79 20 124/62 97
07/21/24 12:07 07/21/24 12:15 07/21/24 12:07 07/21/24 12:07 07/21/24 12:07
I&O
07/20/24 07/21/24 07/22/24
06:59 06:59 06:59
Intake Total 303 / 303
Output Total 200 / 200
Balance 103 / 103
Review of Systems
-
History Source: Patient
All other systems: Not reviewed unless documented
Data Reviewed
-
CT Scan: Image personally visualized and interpreted and Report Reviewed by me
Labs: Labs Reviewed by me
[2024-07-21] MEDS: FLUSH (NSS) 1 FLUSH IV (17:27)
[2024-07-21] MEDS: LIPITOR 40 MG PO (17:27)
--- NOTE | 2024-07-21 20:41 | PTCARENOTE ---
Received patient at change of shift. Awake, alert, and oriented sitting in chair. BP 117/55, NSR 70s with LBBB and PVCs, 98% on room air. No c/o of dizziness or chest pain. Discussed plan of care. Patient verbalized understanding. Call soria within
reach.
[2024-07-22] VITALS (9 sets, daily range): BP systolic 126–160; BP diastolic 49–86; PULSE 78; BMI 28.3
[2024-07-22] MEDS: ZOSYN 100 IV ×4 (04:04→23:07)
[2024-07-22 05:18] LABS: % Basophils 0.5 % (0-2); % Eosinophils 2.8 % (0-6); % Immature Granulocytes 0.2 % (0-0.5); % Lymphocytes 35.3 % (20.5-51.1); % Monocytes 10.2 % (1.7-9.3); Absolute Eosinophils 0.2 10^3/uL (0-0.7); Absolute Lymphocytes 2.2 10^3/uL (1.2-3.4); Absolute Monocytes 0.6 10^3/uL (0.1-0.6); Absolute Neutrophils 3.1 10^3/uL (1.4-6.5); Hematocrit 33.3 % (37.0-47.0); Hemoglobin 11.2 g/dL (12.0-16.0); Mean Corp Hgb Conc. 33.6 g/dL (33.0-37.0); Mean Corpuscular Hgb 28.1 pg (27.0-31.0); Mean Corpuscular Volume 83.7 fL (81.0-99.0); Mean Platelet Volume 11.4 fL (7.4-10.4); Nucleated Red Blood Cells % 0 %; Platelet Count 153 10^3/uL (130-400); Red Blood Cell Count 3.98 10^6/uL (4.20-5.40); Red Cell Dist. Width 13.4 % (11.5-14.5); White Blood Cell Count 6.1 10^3/uL (4.8-10.8)
[2024-07-22 05:25] LABS: ALT (SGPT) 26 U/L (0-35); AST (SGOT) 34 U/L (14-36); Albumin 3.5 g/dl (3.5-5.0); Alkaline Phosphatase 44 U/L (38-126); Blood Urea Nitrogen 16 mg/dl (7-17); Carbon Dioxide 24 mmol/L (22-30); Chloride 104 mmol/L (98-107); Estimated Creatinine Clearance 49 ml/min; Glucose 95 mg/dl (70-99); Potassium 4.1 mmol/L (3.5-5.1); Sodium 138 mmol/L (135-145); Total Bilirubin 0.8 mg/dl (0.2-1.3); eGFR > 60.00
[2024-07-22] MEDS: ASPIR LOW (ENTERIC COATED) 81 MG PO (08:41)
[2024-07-22] MEDS: IMDUR (EXTENDED RELEASE) 60 MG PO (08:41)
[2024-07-22] MEDS: ZESTRIL 10 MG PO ×2 (08:41→19:51)
[2024-07-22] MEDS: PROZAC 40 MG PO (08:42)
--- NOTE | 2024-07-22 13:58 | CM ---
CM following for DC planning needs.
Met w/ patient and spouse at bedside. Pt. was hopeful for DC by now but understands the delay.
We discussed needs at home. She declines any home-care needs. She, however, is interested in outpatient vestibular therapy and would prefer [facility]. Placed number in DC instructions so she can follow up.
Will cont. to follow for any needs that may arise.
Antic. home w/ spouse once medically stable.
--- NOTE | 2024-07-22 14:48 | W.PN.HOSP.TC ---
Today's Communication/Plan
-
await urine cultures
zosyn
Assessment / Plan
Assessment / Plan
Physical Exam
General: Comfortable and Conversant; No Pain, Fever or Chills
HEENT: NormoCephalic, Anicteric, Moist mucous membranes, PERRLA, [place] Conjunctivae and Neck Nontender
Respiratory: Clear; No Wheezes, Rales or Rhonchi
Cardiac: S1/S2 and Regular Rhythm (Sinus with PACs); No Murmur, Rub, Gallop, Peripheral Edema or JVD
Breast: Deferred by me
GI: Soft, Non Tender, Non Distended, Normal Bowel Sounds and No Hepatosplenomegaly
Rectal: Deferred by Provider
Genito-urinary: Deferred by me
Musculoskeletal: No Clubbing, No Cyanosis and No Edema
Skin: Warm and Dry; No Rash
Neuro: AO x 3, No Motor Deficits, Nonfocal/grossly intact and Cranial Nerves Intact; No Slurred Speech, Facial Droop, Tremors or Sedated
Psych: Calm
#Atypical Chest Pain
#Elevated Troponin Elevation - most likely non ischemic myocardial injury
-Cards consulted
� Cardiology feels troponin elevation is nonischemic myocardial injury, related to presenting illness, ? UTI
� Add as needed nitroglycerin sublingual
� Increase isosorbide mononitrate
� Cardiology reviewed signs symptoms of ACS/SC, prompting ER visit/911
�patient stable off heparin drip, cardiology has cleared patient
- Cont ASA
-F/u Cards outpatient
#CAD with history of LAD stenting:
-continue ASA, statin, increase imdur- also needs PRN nitro at d/c
#UTI
-has psuedomonas A in the past
-f/u cultures
-start zosyn
#Chronic LBBB
#Acute on chronic vertigo�resolved
Has had 1-2 times a month for the last 5 years, was treated with vestibular therapy approximately 2 years ago
-Given meclizine 25 mg in ER with vertigo resolving
-Continue meclizine 3 times daily as needed vertigo
#HTN�benign
ACEI
Increase isosorbide
#Depression/anxiety
-Continue fluoxetine 40 mg daily
#Vertigo
- meclizine
DVT prophylaxis
Patient on IV heparin
DNR per patient no CPR no intubation but does want IV antibiotics IV fluids
Anticipated Discharge: Within 24 hours
Subjective/Interval History
-
Date of Service: July 22, 2024
No acute events overnight
Objective Data
-
Labs:
Laboratory Results
07/22/24
04:12
WBC 6.1
Hgb 11.2 L
Hct 33.3 L
Plt Count 153
Sodium 138
Potassium 4.1
Chloride 104
Carbon Dioxide 24
BUN 16
Creatinine 0.8
Glucose 95
Calcium 9.0
Total Bilirubin 0.8
AST 34
ALT 26
Alkaline Phosphatase 44
Vital Signs:
Vital Signs
Temp Pulse Resp BP Pulse Ox
98.7 F 72 20 145/71 97
07/22/24 11:23 07/22/24 08:41 07/22/24 11:23 07/22/24 08:41 07/22/24 11:23
I&O
07/21/24 07/22/24 07/23/24
06:59 06:59 06:59
Intake Total 303 / 303 1160 / 1160 340 / 340
Output Total 200 / 200 600 / 600
Balance 103 / 103 560 / 560 340 / 340
Review of Systems
-
History Source: Patient
All other systems: Not reviewed unless documented
Data Reviewed
-
CT Scan: Image personally visualized and interpreted and Report Reviewed by me
Labs: Labs Reviewed by me
[2024-07-22] MEDS: LIPITOR 40 MG PO (17:56)
[2024-07-23 04:29] VITALS: BMI 28.5
[2024-07-23 04:31] VITALS: BP 180/66
[2024-07-23 04:33] VITALS: BP 160/94
[2024-07-23] MEDS: ZOSYN 100 IV ×2 (04:40→09:42)
[2024-07-23] MEDS: ANTIVERT 25 MG PO (04:46)
[2024-07-23 05:15] LABS: % Basophils 0.6 % (0-2); % Eosinophils 3.5 % (0-6); % Immature Granulocytes 0.3 % (0-0.5); % Lymphocytes 35.8 % (20.5-51.1); % Monocytes 11.3 % (1.7-9.3); % Neutrophils 48.5 % (42.2-75.2); Absolute Eosinophils 0.2 10^3/uL (0-0.7); Absolute Lymphocytes 2.3 10^3/uL (1.2-3.4); Absolute Monocytes 0.7 10^3/uL (0.1-0.6); Absolute Neutrophils 3.1 10^3/uL (1.4-6.5); Hematocrit 36.9 % (37.0-47.0); Hemoglobin 12.3 g/dL (12.0-16.0); Mean Corp Hgb Conc. 33.3 g/dL (33.0-37.0); Mean Corpuscular Hgb 28.8 pg (27.0-31.0); Mean Corpuscular Volume 86.4 fL (81.0-99.0); Mean Platelet Volume 11.5 fL (7.4-10.4); Nucleated Red Blood Cells % 0 %; Platelet Count 163 10^3/uL (130-400); Red Blood Cell Count 4.27 10^6/uL (4.20-5.40); Red Cell Dist. Width 13.4 % (11.5-14.5); White Blood Cell Count 6.5 10^3/uL (4.8-10.8)
[2024-07-23 05:36] LABS: ALT (SGPT) 24 U/L (0-35); AST (SGOT) 32 U/L (14-36); Albumin 3.9 g/dl (3.5-5.0); Alkaline Phosphatase 41 U/L (38-126); Blood Urea Nitrogen 11 mg/dl (7-17); Calcium 9.2 mg/dl (8.4-10.2); Carbon Dioxide 26 mmol/L (22-30); Chloride 102 mmol/L (98-107); Estimated Creatinine Clearance 49 ml/min; Glucose 94 mg/dl (70-99); Potassium 4.5 mmol/L (3.5-5.1); Sodium 140 mmol/L (135-145); Total Bilirubin 1.2 mg/dl (0.2-1.3); Total Protein 6.6 g/dl (6.3-8.2); eGFR > 60.00
--- NOTE | 2024-07-23 06:12 | PTCARENOTE ---
Pt NSR with PVc's on monitor. Frequent urination. Pt ambulates independently in the room C/o dizziness post ambulation, Meclizine PRN given. Pt resting comfortable
[2024-07-23] MEDS: ASPIR LOW (ENTERIC COATED) 81 MG PO (07:33)
[2024-07-23] MEDS: PROZAC 40 MG PO (07:33)
[2024-07-23] MEDS: ZESTRIL 10 MG PO (07:33)
[2024-07-23] MEDS: IMDUR (EXTENDED RELEASE) 60 MG PO (07:34)
[2024-07-23 07:35] VITALS: BP 160/71
[2024-07-23 09:34] VITALS: BP 144/74
[2024-07-23 09:39] VITALS: BP 144/74
[2024-07-23] MEDS: STERILE WATER FOR INJECTION 10 ML IV (10:39)
[2024-07-23] MEDS: ROCEPHIN 1000 MG IV (10:40)
--- NOTE | 2024-07-23 11:08 | CM ---
CM following for DC planning needs.
Met w/ patient and granddtr. at bedside.
We reviewed DC plan for home w/ spouse without needs.
I have placed Outpatient Therapy telephone number in DC instructions per patient request so she can follow up with vestibular therapy.
Pt. has been ambulating ad beto per her report and her chart notes.
CM will remain avail. as needed.
[2024-07-23 11:35] VITALS: BP 145/62
--- NOTE | 2024-07-23 13:32 | W.PN.HOSP.TC ---
Addendum entered and electronically signed by Rodríguez Dickerson MD 07/25/24 15:38:
[id number]
Cefdinir*
Original Note:
Today's Communication/Plan
-
Nitroglycerin sublingual
Isosorbide mononitrate
Switch to Ceftin to complete 7-day course
Follow-up ENT, urology, PCP, cardiology patient
Assessment / Plan
Assessment / Plan
Physical Exam
General: Comfortable and Conversant; No Pain, Fever or Chills
HEENT: NormoCephalic, Anicteric, Moist mucous membranes, PERRLA, [place] Conjunctivae and Neck Nontender
Respiratory: Clear; No Wheezes, Rales or Rhonchi
Cardiac: S1/S2 and Regular Rhythm (Sinus with PACs); No Murmur, Rub, Gallop, Peripheral Edema or JVD
Breast: Deferred by me
GI: Soft, Non Tender, Non Distended, Normal Bowel Sounds and No Hepatosplenomegaly
Rectal: Deferred by Provider
Genito-urinary: Deferred by me
Musculoskeletal: No Clubbing, No Cyanosis and No Edema
Skin: Warm and Dry; No Rash
Neuro: AO x 3, No Motor Deficits, Nonfocal/grossly intact and Cranial Nerves Intact; No Slurred Speech, Facial Droop, Tremors or Sedated
Psych: Calm
#Atypical Chest Pain
#Elevated Troponin Elevation - most likely non ischemic myocardial injury
-Cards consulted
� Cardiology feels troponin elevation is nonischemic myocardial injury, related to presenting illness, ? UTI
� Add as needed nitroglycerin sublingual
� Increase isosorbide mononitrate
� Cardiology reviewed signs symptoms of ACS/SC, prompting ER visit/911
�patient stable off heparin drip, cardiology has cleared patient
- Cont ASA
-F/u Cards outpatient
#CAD with history of LAD stenting:
-continue ASA, statin, increase imdur- also needs PRN nitro at d/c
#UTI
Klebsiella aerogenes
-zosyn - switch to cefdinir upon dc to complete 7 day course
#Chronic LBBB
#Acute on chronic vertigo�resolved
Has had 1-2 times a month for the last 5 years, was treated with vestibular therapy approximately 2 years ago
-Given meclizine 25 mg in ER with vertigo resolving
-Continue meclizine 3 times daily as needed vertigo
-ent outpatient eval
#HTN�benign
ACEI
Increase isosorbide
#Depression/anxiety
-Continue fluoxetine 40 mg daily
#Vertigo
- meclizine
DVT prophylaxis
Patient on IV heparin
DNR per patient no CPR no intubation but does want IV antibiotics IV fluids
More than 30 minutes spent in discharge including
Final examination of the patient
Summarizing hospital stay
Instructions for continuing care to all relevant caregivers
Preparation of discharge records, prescriptions, and referral forms
Total time spent (35 in minutes):
Anticipated Discharge: Today
Subjective/Interval History
-
Date of Service: July 23, 2024
No acute events overnight
Objective Data
-
Labs:
Laboratory Results
07/23/24
04:39
WBC 6.5
Hgb 12.3
Hct 36.9 L
Plt Count 163
Sodium 140
Potassium 4.5
Chloride 102
Carbon Dioxide 26
BUN 11
Creatinine 0.8
Glucose 94
Calcium 9.2
Total Bilirubin 1.2
AST 32
ALT 24
Alkaline Phosphatase 41
Vital Signs:
Vital Signs
Temp Pulse Resp BP Pulse Ox
98.3 F 72 20 160/71 98
07/23/24 11:32 07/23/24 08:00 07/23/24 11:32 07/23/24 07:35 07/23/24 11:32
I&O
07/22/24 07/23/24 07/24/24
06:59 06:59 06:59
Intake Total 1160 / 1160 890 / 890
Output Total 600 / 600
Balance 560 / 560 890 / 890
Review of Systems
-
History Source: Patient
All other systems: Not reviewed unless documented
Data Reviewed
-
CT Scan: Image personally visualized and interpreted and Report Reviewed by me
Labs: Labs Reviewed by me
--- NOTE | 2024-07-23 13:35 | W.DS.TRANS ---
DC Summary - Supervisory Clerk
-
Discharge Instructions:
Discharge Diagnosis/Procedures
Abnormal troponin
Atypical chest pain
UTI
Diet Low Cholesterol,Low Fat
Activity As tolerated
Blood Work cbc, bmp in 5 days with pcp; F/u urine for
bacteria clearance with PCP in 2-3 days
Instructions:
Stand-Alone Forms:
Changes to Home Medications: No
Discharge Medications:
DC Medications w/original date entered in [employer]
aspirin 81 mg tablet,delayed release 81 mg PO DAILY Blood Clot Prevention/Tx 07/20/24
atorvastatin 40 mg tablet 40 mg PO QPM High Cholesterol 07/20/24
fluoxetine 40 mg capsule 40 mg PO DAILY depression/anxiety 07/20/24
lisinopril 10 mg tablet 10 mg PO BID Blood Pressure 07/20/24
meclizine 25 mg tablet 25 mg PO TID PRN dizziness #30 tabs 07/20/24
methenamine hippurate 1 gram tablet 1 g PO BIDPRN PRN urinary symptoms 07/20/24
nitroglycerin 0.4 mg sublingual tablet (Nitrostat) 0.4 mg sublingual Q5M PRN chest discomfort #25 tabs 07/21/24
cefdinir 300 mg capsule 300 mg PO Q12H 4 days #8 caps 07/23/24
isosorbide mononitrate 60 mg tablet,extended release 24 hr 60 mg PO DAILY 30 days #30 tabs 07/23/24
Home Medication Changes
cefdinir 300 mg capsule 300 mg PO Q12H 4 days #8 caps 07/23/24
isosorbide mononitrate 60 mg tablet,extended release 24 hr 60 mg PO DAILY 30 days #30 tabs 07/23/24
nitroglycerin 0.4 mg sublingual tablet (Nitrostat) 0.4 mg sublingual Q5M PRN chest discomfort #25 tabs 07/21/24
Pending Results: No
--- NOTE | 2024-07-23 14:00 | PTCARENOTE ---
Pt received this am with no c/o of any chest pain. Pt oob ad beto to the BR and to the chair for meals. Gait steady with no c/o of any issues with vertigo. Pt discharged to home with her . Discharge instructions given and reviewed with good
understanding.
== END 2024-07-23 13:38 | disposition home or self-care (01) | DRG 690 ==
LOC: IVU 21:04
PROVIDERS: Clinical Nurse Specialist Family Health; Emergency Medicine; Nurse Practitioner Gerontology; Physician Assistant; ADMITTING PHYSICIAN Hospitalist; ATTENDING PHYSICIAN Internal Medicine; CONSULT PHYSICIAN Internal Medicine Cardiovascular Disease; EMERGENCY PHYSICIAN Emergency Medicine; FAMILY PHYSICIAN Family Medicine
DX: N39.0 Urinary tract infection, site not specified (principal); I5A Non-ischemic myocardial injury (non-traumatic); I50.20 Unspecified systolic (congestive) heart failure; B96.1 Klebsiella pneumoniae [K. pneumoniae] as the cause of diseases classified elsewhere; I25.10 Atherosclerotic heart disease of native coronary artery without angina pectoris; F41.9 Anxiety disorder, unspecified; F32.A Depression, unspecified; R42 Dizziness and giddiness; Z66 Do not resuscitate; Z11.52 Encounter for screening for COVID-19
CPT/HCPCS: 70450; 80053; 80061; 81003; 81015; 82962; 83036; 84484; 85025; 85730; 87077; 87086; 87186; 87811; 93005; 96361; 96374; 96375; 96376; 97112; 97116; 97162; 97163; 97165; 99285

== ENCOUNTER → 2024-07-29 06:42 | Outpatient (REF) | payer MEDICARE, OTHER, SELFPAY ==
[2024-07-29 07:49] LABS: Urine Albumin Trace (Neg - Trace); Urine Bilirubin Negative (Negative); Urine Character Clear (Clear); Urine Color Yellow; Urine Glucose Negative (Negative); Urine Ketone Negative (Negative); Urine Leukocyte Trace (Negative); Urine Nitrite Negative (Negative); Urine Occult Blood Trace (Negative); Urine Specific Gravity 1.015 (<1.030); Urine Urobilinogen Negative (Neg - 1+)
[2024-07-29 07:59] LABS: ALT (SGPT) 18 U/L (0-35); AST (SGOT) 29 U/L (14-36); Albumin 4.3 g/dl (3.5-5.0); Alkaline Phosphatase 50 U/L (38-126); Blood Urea Nitrogen 14 mg/dl (7-17); Calcium 9.7 mg/dl (8.4-10.2); Carbon Dioxide 28 mmol/L (22-30); Chloride 102 mmol/L (98-107); Glucose 103 mg/dl (70-99); Potassium 4.5 mmol/L (3.5-5.1); Sodium 142 mmol/L (135-145); Total Bilirubin 0.7 mg/dl (0.2-1.3); Total Protein 7.3 g/dl (6.3-8.2); eGFR > 60.00
[2024-07-29 08:09] LABS: Urine Bacteria Few (Negative); Urine Red Blood Cell 0-2 /HPF (0-2); Urine White Cell 21-25 /HPF (0-5)
[2024-07-29 08:46] LABS: % Basophils 0.8 % (0-2); % Eosinophils 2.9 % (0-6); % Immature Granulocytes 0.2 % (0-0.5); % Lymphocytes 32.4 % (20.5-51.1); % Monocytes 9.6 % (1.7-9.3); % Neutrophils 54.1 % (42.2-75.2); Absolute Eosinophils 0.2 10^3/uL (0-0.7); Absolute Lymphocytes 1.7 10^3/uL (1.2-3.4); Absolute Monocytes 0.5 10^3/uL (0.1-0.6); Absolute Neutrophils 2.8 10^3/uL (1.4-6.5); Hematocrit 38.9 % (37.0-47.0); Hemoglobin 13.1 g/dL (12.0-16.0); Mean Corp Hgb Conc. 33.7 g/dL (33.0-37.0); Mean Corpuscular Hgb 29.3 pg (27.0-31.0); Mean Platelet Volume 11.9 fL (7.4-10.4); Nucleated Red Blood Cells % 0 %; Platelet Count 176 10^3/uL (130-400); Red Blood Cell Count 4.47 10^6/uL (4.20-5.40); Red Cell Dist. Width 13.2 % (11.5-14.5); White Blood Cell Count 5.2 10^3/uL (4.8-10.8)
== END ==
LOC: REG 06:42
PROVIDERS: ATTENDING PHYSICIAN Family Medicine
DX: R07.89 Other chest pain (principal); N39.0 Urinary tract infection, site not specified; R42 Dizziness and giddiness
CPT/HCPCS: 36415; 80053; 81003; 81015; 85025; 87077; 87086; 87186

== ENCOUNTER → 2024-08-24 10:48 | Outpatient (REF) | payer MEDICARE, OTHER, SELFPAY | LOC: DHCBC/DCA 10:48 | PROVIDERS: ATTENDING PHYSICIAN Nurse Practitioner; FAMILY PHYSICIAN Family Medicine | DX: I25.10 Atherosclerotic heart disease of native coronary artery without angina pectoris (principal) | CPT/HCPCS: 78452; 93017; A9500; J2785 ==

== ENCOUNTER → 2024-09-22 11:35 | Outpatient (REF) | payer MEDICARE, OTHER, SELFPAY ==
[2024-09-22 18:55] LABS: Urine Albumin Negative (Neg - Trace); Urine Bilirubin Negative (Negative); Urine Character Clear (Clear); Urine Color Yellow; Urine Glucose Negative (Negative); Urine Ketone Negative (Negative); Urine Leukocyte Negative (Negative); Urine Nitrite Negative (Negative); Urine Occult Blood Negative (Negative); Urine Specific Gravity 1.015 (<1.030); Urine Urobilinogen Negative (Neg - 1+)
== END ==
LOC: CLAB 11:35
PROVIDERS: ATTENDING PHYSICIAN Family Medicine
DX: N39.0 Urinary tract infection, site not specified (principal)
CPT/HCPCS: 81003

== ENCOUNTER → 2024-09-30 06:44 | Outpatient (REF) | payer MEDICARE, OTHER, SELFPAY ==
[2024-09-30 08:11] LABS: % Basophils 0.9 % (0-2); % Eosinophils 3.5 % (0-6); % Immature Granulocytes 0.2 % (0-0.5); % Monocytes 9.7 % (1.7-9.3); % Neutrophils 42.7 % (42.2-75.2); Absolute Eosinophils 0.2 10^3/uL (0-0.7); Absolute Monocytes 0.4 10^3/uL (0.1-0.6); Absolute Neutrophils 1.9 10^3/uL (1.4-6.5); Hematocrit 40.1 % (37.0-47.0); Hemoglobin 12.9 g/dL (12.0-16.0); Mean Corp Hgb Conc. 32.2 g/dL (33.0-37.0); Mean Corpuscular Hgb 28.5 pg (27.0-31.0); Mean Corpuscular Volume 88.7 fL (81.0-99.0); Mean Platelet Volume 11.1 fL (7.4-10.4); Nucleated Red Blood Cells % 0 %; Platelet Count 161 10^3/uL (130-400); Red Blood Cell Count 4.52 10^6/uL (4.20-5.40); Red Cell Dist. Width 13.2 % (11.5-14.5); White Blood Cell Count 4.5 10^3/uL (4.8-10.8)
[2024-09-30 09:06] LABS: ALT (SGPT) 17 U/L (0-35); AST (SGOT) 27 U/L (14-36); Albumin 4.2 g/dl (3.5-5.0); Alkaline Phosphatase 58 U/L (38-126); Blood Urea Nitrogen 20 mg/dl (7-17); Calcium 9.3 mg/dl (8.4-10.2); Carbon Dioxide 27 mmol/L (22-30); Chloride 101 mmol/L (98-107); Glucose 117 mg/dl (70-99); HDL Cholesterol 92 mg/dl; LDL Cholesterol, Calculated 77 mg/dl; Potassium 5.2 mmol/L (3.5-5.1); Sodium 137 mmol/L (135-145); Total Bilirubin 0.7 mg/dl (0.2-1.3); Total Cholesterol 178 mg/dl (50-199); Total Protein 6.9 g/dl (6.3-8.2); Triglyceride 48 mg/dl (10-149); Very Low Density Lipoprotein 9 mg/dl (0-30); eGFR > 60.00
[2024-09-30 09:17] LABS: TSH Reflex To Free T4 3.02 uIU/ml (0.47-4.68)
[2024-09-30 10:47] LABS: Glycohemoglobin (HgbA1c) 6.2 % (4.0-5.6)
== END ==
LOC: REG 06:44
PROVIDERS: ATTENDING PHYSICIAN Family Medicine
DX: R26.2 Difficulty in walking, not elsewhere classified (principal); Z01.89 Encounter for other specified special examinations; R79.9 Abnormal finding of blood chemistry, unspecified; R35.0 Frequency of micturition; I5A Non-ischemic myocardial injury (non-traumatic)
CPT/HCPCS: 36415; 80053; 80061; 83036; 84443; 85025; 87086

== ENCOUNTER 2025-01-07 09:54 | Outpatient (RCR) | payer MEDICARE, OTHER, SELFPAY | END 2025-01-07 23:59 | disposition home or self-care (01) | LOC: RPT 09:54 | PROVIDERS: ATTENDING PHYSICIAN Family Medicine | DX: H81.10 Benign paroxysmal vertigo, unspecified ear (principal); Z73.6 Limitation of activities due to disability | CPT/HCPCS: 95992; 97112; 97161 ==

== ENCOUNTER → 2025-01-10 06:18 | Outpatient (REF) | payer MEDICARE, OTHER, SELFPAY ==
[2025-01-10 07:27] LABS: Hematocrit 38.1 % (37.0-47.0); Hemoglobin 12.8 g/dL (12.0-16.0); Mean Corp Hgb Conc. 33.6 g/dL (33.0-37.0); Mean Corpuscular Volume 86.2 fL (81.0-99.0); Mean Platelet Volume 11.2 fL (7.4-10.4); Platelet Count 148 10^3/uL (130-400); Red Blood Cell Count 4.42 10^6/uL (4.20-5.40); Red Cell Dist. Width 13.2 % (11.5-14.5); White Blood Cell Count 4.2 10^3/uL (4.8-10.8)
[2025-01-10 08:14] LABS: ALT (SGPT) 22 U/L (0-35); AST (SGOT) 28 U/L (14-36); Albumin 4.2 g/dl (3.5-5.0); Alkaline Phosphatase 62 U/L (38-126); Blood Urea Nitrogen 19 mg/dl (7-17); Carbon Dioxide 26 mmol/L (22-30); Chloride 102 mmol/L (98-107); Glucose 101 mg/dl (70-99); Potassium 4.7 mmol/L (3.5-5.1); Sodium 138 mmol/L (135-145); Total Bilirubin 0.6 mg/dl (0.2-1.3); Total Protein 6.8 g/dl (6.3-8.2); eGFR > 60.00
== END ==
LOC: REG 06:18
PROVIDERS: ATTENDING PHYSICIAN Family Medicine; OTHER PHYSICIAN Internal Medicine Cardiovascular Disease
DX: R42 Dizziness and giddiness (principal); R79.9 Abnormal finding of blood chemistry, unspecified; Z79.899 Other long term (current) drug therapy; Z01.89 Encounter for other specified special examinations
CPT/HCPCS: 36415; 80053; 85027

== ENCOUNTER → 2025-04-12 12:51 | Outpatient (REF) | payer MEDICARE, OTHER, SELFPAY | LOC: HWRCS 12:51 | PROVIDERS: ATTENDING PHYSICIAN Internal Medicine Cardiovascular Disease; FAMILY PHYSICIAN Family Medicine | DX: I25.10 Atherosclerotic heart disease of native coronary artery without angina pectoris (principal); I44.7 Left bundle-branch block, unspecified; I34.0 Nonrheumatic mitral (valve) insufficiency; R42 Dizziness and giddiness | CPT/HCPCS: 93306 ==

== ENCOUNTER → 2025-04-25 14:56 | Outpatient (REF) | payer MEDICARE, OTHER, SELFPAY | LOC: HWRAD 14:56 | PROVIDERS: ATTENDING PHYSICIAN Family Medicine | DX: E04.2 Nontoxic multinodular goiter (principal) | CPT/HCPCS: 76536 ==

== ENCOUNTER → 2025-08-30 06:58 | Outpatient (REF) | payer MEDICARE, OTHER, SELFPAY ==
[2025-08-30 07:56] LABS: Hematocrit 38.4 % (37.0-47.0); Hemoglobin 12.6 g/dL (12.0-16.0); Mean Corp Hgb Conc. 32.8 g/dL (33.0-37.0); Mean Corpuscular Volume 88.1 fL (81.0-99.0); Nucleated Red Blood Cells % 0 %; Platelet Count 145 10^3/uL (130-400); Red Cell Dist. Width 13.5 % (11.5-14.5)
[2025-08-30 08:08] LABS: ALT (SGPT) 26 U/L (0-35); AST (SGOT) 30 U/L (14-36); Albumin 4.3 g/dl (3.5-5.0); Alkaline Phosphatase 63 U/L (38-126); Blood Urea Nitrogen 14 mg/dl (7-17); Calcium 9.2 mg/dl (8.4-10.2); Carbon Dioxide 28 mmol/L (22-30); Chloride 102 mmol/L (98-107); Glucose 110 mg/dl (70-99); HDL Cholesterol 95 mg/dl; LDL Cholesterol, Calculated 59 mg/dl; Potassium 4.3 mmol/L (3.5-5.1); Sodium 136 mmol/L (135-145); Total Protein 7.0 g/dl (6.3-8.2); Very Low Density Lipoprotein 9 mg/dl (0-30); eGFR > 60.00
[2025-08-30 08:52] LABS: Glycohemoglobin (HgbA1c) 6.2 % (4.0-5.9)
== END ==
LOC: REG 06:58
PROVIDERS: ATTENDING PHYSICIAN Family Medicine
DX: R79.9 Abnormal finding of blood chemistry, unspecified (principal); Z79.899 Other long term (current) drug therapy; Z01.89 Encounter for other specified special examinations; Z13.1 Encounter for screening for diabetes mellitus; F33.0 Major depressive disorder, recurrent, mild; R73.01 Impaired fasting glucose
CPT/HCPCS: 36415; 80053; 80061; 83036; 84443; 85025